=== PATIENT | female | born 1960 | race Caucasian/White ===

== ENCOUNTER 2019-09-03 21:19 | Emergency (ER) | payer SELFPAY ==
[~2019-09-03] VITALS: Ht 157.5 cm; Wt 59.0 kg
[2019-09-03 21:19] VITALS: BP_SYST 154
--- NOTE | 2019-09-03 21:19 | NUR ---
Pt marco antonio MCS for evaluation
--- NOTE | 2019-09-03 21:25 | NUR ---
Pt AQUILINO rasheedbeater head to ED seeking medical clearance for booking pt. VSS no s/s of acute distress Resting on gurney rails up
[2019-09-03] MEDS ORDERED: AMOXICILLIN 500 MG CAPSULE PO ONE (21:45)
[2019-09-03 22:21] VITALS: BP_SYST 146
== END 2019-09-03 22:21 ==
LOC: SED 21:19
DX: R22.0 Localized swelling, mass and lump, head (principal); F10.10 Alcohol abuse, uncomplicated; Y90.9 Presence of alcohol in blood, level not specified
CPT/HCPCS: 99283

== ENCOUNTER 2020-03-21 09:41 | Emergency (ER) | payer OTHER ==
[~2020-03-21] VITALS: Ht 157.5 cm; Wt 59.0 kg
[2020-03-21 09:47] VITALS: BP_SYST 140
--- NOTE | 2020-03-21 09:50 | NUR ---
SENT TO WAITING ROOM
--- NOTE | 2020-03-21 10:10 | NUR ---
AMBULATED TO BED 6
--- NOTE | 2020-03-21 10:15 | NUR ---
Pt walked in to ER with c/o finger injury. Approx 3-4cm lacerations to right index finger, Pt reports it was smashed in the truck tailgate. Pain 4/10. V/S stable, pt is afebrile, Currently resting at bedside, will continue to monitor
--- NOTE | 2020-03-21 10:20 | NUR ---
ER Dr. Gould at bedside examining patient.
[2020-03-21] MEDS ORDERED: LIDOCAINE 1%, 20 ML MDV 20 ML ONE (10:26)
[2020-03-21] MEDS ORDERED: LIDOCAINE 1% 10 MG/ML, 20 ML MDV INJ ONE (10:30)
--- NOTE | 2020-03-21 10:30 | NUR ---
Radiology at bedside for x-ray
[2020-03-21] MEDS ORDERED: DIPH-TET-PERTUS Vaccine 0.5 ML VIAL (ADACEL) I.M. ONE (10:45)
--- NOTE | 2020-03-21 10:45 | NUR ---
Patient has a 3-4 cm laceration to right index finger. Dr. Gould applied sutures using sterile technique. Edges well approximated. Site cleansed with Betadine and NS. Dressing of non-stick gauze, splint and wrap applied to site. No bleeding noted. Pt tolerated well.
[2020-03-21] MEDS ORDERED: ACETAMINOPHEN 500 MG TABLET PO ONE (11:00)
--- NOTE | 2020-03-21 11:30 | NUR ---
Patient given written and verbal discharge instructions and verbalizes understanding. ER MD discussed with patient the results and treatment provided. Patient in stable condition. ID arm band removed. Rx of Bactrim and Motrin given. Patient educated on pain management and to follow up with PMD. Pain Scale 0. Opportunity for questions provided and answered. Medication side effect fact sheet provided.
[2020-03-21 11:43] VITALS: BP_SYST 140
== END 2020-03-21 11:43 | disposition home or self-care (01) ==
LOC: SED 09:41
DX: S61.210A Laceration without foreign body of right index finger without damage to nail, initial encounter (principal); F17.210 Nicotine dependence, cigarettes, uncomplicated; V29.9XXA Motorcycle rider (driver) (passenger) injured in unspecified traffic accident, initial encounter; Y93.89 Activity, other specified; Y92.89 Other specified places as the place of occurrence of the external cause; Y99.8 Other external cause status
CPT/HCPCS: 12002; 73140; 90471; 90715; 99283; J2001